=== PATIENT | female | born 1955 | race Caucasian/White ===

== ENCOUNTER 2016-08-02 07:29 | Emergency (ER) | payer OTHER ==
[~2016-08-02] VITALS: Ht 165.1 cm; Wt 71.7 kg
[~2016-08-02 07:29] MED LIST: PEPCID40 MG PO; PERCOCET 325 MG1 TA2 PO; ZOFRAN ODT4 MG SL
[2016-08-02 07:33] VITALS: BP 123/75
--- NOTE | 2016-08-02 07:48 | ED UPPER/LOWER EXTREMITY COMPL ---
History of Present Illness General Chief Complaint: Lower Extremity Injury Stated Complaint: RT LEG PAIN S/P FALL Source: patient Exam Limitations: no limitations Vital Signs & Intake/Output Vital Signs & Intake/Output Vital Signs Date Time Temp Pulse Resp B/P Pulse O2 O2 Flow FiO2 Ox Delivery Rate 08/02 0733 97.0 73 20 123/75 99 Room Air Allergies Coded Allergies: Sulfa (Sulfonamide Antibiotics) (UNKNOWN 08/02/16) erythromycin base (UNKNOWN 08/02/16) levofloxacin (UNKNOWN 08/02/16) Reconcile Medications Atenolol 25 MG TABLET 1 TAB PO DAILY HEART (Reported) Escitalopram Oxalate 10 MG TABLET 1 TAB PO DAILY MENTAL HEALTH (Reported) Ibuprofen 400 MG TABLET 1 TAB PO TID PRN PAIN Tylenol With Codeine (Tylenol With Codeine #3 Tablet) 300 MG-30 MG TABLET 1 TAB PO BIDP PRN BREAKTHROUGH PAIN Triage Note: TRIP AND FELL 2 DAYS AGO INJURING RIGHT SUAREZ. PT STATES PAIN WITH WEIGHT BEARING AND WHEN SHE SLEEPS Triage Nurses Notes Reviewed? yes Onset: Abrupt Duration: day(s): (3) Timing: recent history Severity: moderate Severity Numbers: 7 (4-7) Pain/Injury Location: Right: Leg. Method of Injury: fall Modifying Factors: Worsens With: other (WALKING, SLEEPING). Associated Symptoms: BRUISING HPI: 61 year old female who presents to the ER with right suarez pain after tripping on snow on thursday. Pain is 4/10 to 7/10. No relief with tylenol. Worse with walking and with sleep. Pain dull in intensity. Past History Travel History Traveled to [place] past 21 day No Medical History Any Pertinent Medical History? see below for history Cardiovascular: low bp Gastrointestinal: irritable bowel syndrome Surgical History Surgical History: non-contributory Psychosocial History What is your primary language Nepali Tobacco Use: Never used ETOH Use: occasional use Illicit Drug Use: denies illicit drug use Family History Hx Contributory? No Review of Systems Review of Systems Constitutional: Denies: chills, fever. EENTM: Reports: no symptoms. Respiratory: Denies: cough, short of breath. Cardiovascular: Denies: chest pain, palpitations. Gastrointestinal/Abdominal: Denies: abdominal pain. Genitourinary: Denies: discharge, dysuria. Musculoskeletal: Reports: no symptoms. Skin: Reports: no symptoms. Neurological/Psychological: Reports: no symptoms. Hematologic/Endocrine: Reports: bruising, bleeding. Denies: polyuria, polydipsia. Immunological: Denies: splenectomy. All Other Systems: Reviewed and Negative Physical Exam Physical Exam General Appearance: well developed/nourished, alert, awake, mild distress Head: atraumatic Eyes: Bilateral: PERRL, EOMI. Ears, Nose, Throat: normal pharynx, normal ENT inspection, hearing grossly normal Neck: normal inspection, supple Cardiovascular/Respiratory: regular rate/rhythm Peripheral Pulses: 2+ radial (R), 2+ radial (L) Back: normal inspection Leg Left: normal range of motion, normal inspection Leg Right: swelling, pain, soft tissue tenderness, ABRASION Hip Left: normal range of motion, normal inspection Hip Right: normal range of motion, normal inspection Knee Left: normal range of motion, normal inspection Knee Right: normal range of motion, normal inspection Neurologic/Tendon: normal sensation, normal motor functions, normal tendon functions Skin: intact, normal color, warm/dry Lymphatic: no anterior cervical keyana Diagram Legs Front/Back 1) ABRASION 2) ABRASION Progress Differential Diagnosis: ABRASION, FX, CONTUSION Plan of Care: Orders Procedure Date/time Status [id number], RIGHT 08/02 801 Active Diagnostic Imaging: Viewed by Me: Radiology Read. Discussed w/RAD: Radiology Read. Radiology Impression: PATIENT: VALENCIA BRIAN PRESENT AGE: 61 PATIENT ACCOUNT NO: [id number] : 56 LOCATION: [facility] ORDERING PHYSICIAN: BARBARA ANGULO MD SERVICE DATE: 08/02/16 EXAM TYPE: RAD - [id number], RIGHT EXAMINATION: XR TIBIA AND FIBULA, RIGHT CLINICAL INFORMATION: Status post fall 3 days ago with pain right tibia. COMPARISON: None TECHNIQUE: AP and lateral views of the right tibia and fibula were obtained. FINDINGS: Soft tissue swelling is noted along the anterior aspect of the proximal tibia. No fracture or other bony abnormality is seen. IMPRESSION: Normal right tibia and fibula. DICTATED BY: ANCELMO PARRA MD DATE/TIME DICTATED:08/02/16818 VARNISH MIXER:FAYE DATE/TIME TRANSCRIBED:818 CONFIDENTIAL, DO NOT COPY WITHOUT APPROPRIATE AUTHORIZATION. < Electronically signed in Other Vendor System> SIGNED BY: ANCELMO PARRA MD 08/02/16 0824 Departure Departure Time of Disposition: 823 Disposition: HOME OR SELF CARE Condition: Stable Clinical Impression Primary Impression: Abrasion Referrals: PATIENT HAS NO PRIMARY CARE DR Additional Instructions: Take the ibuprofen as directed. Take the Tylenol No. 3 for breakthrough pain. Please follow-up with her doctor in the office. Continue to ice, rest and elevate the extremity. Topical antibiotic ointment over the abrasions. Return if worse. Departure Forms: Customer Survey General Discharge Information Prescriptions: Current Visit Scripts Ibuprofen 1 TAB PO TID PRN PAIN #20 TAB Tylenol With Codeine (Tylenol With Codeine #3 Tablet) 1 TAB PO BIDP PRN BREAKTHROUGH PAIN #12 TAB
--- NOTE | 2016-08-02 08:24 | RADIOLOGY REPORT ---
EXAMINATION: XR TIBIA AND FIBULA, RIGHT CLINICAL INFORMATION: Status post fall 3 days ago with pain right tibia. COMPARISON: None TECHNIQUE: AP and lateral views of the right tibia and fibula were obtained. FINDINGS: Soft tissue swelling is noted along the anterior aspect of the proximal tibia. No fracture or other bony abnormality is seen. IMPRESSION: Normal right tibia and fibula.
[2016-08-02] MEDS ORDERED: TYLENOL WITH C1 EACH PO (08:26)
[2016-08-02] MEDS ORDERED: IBUPROFEN400 M1 PO (08:26)
[2016-08-02] MEDS ORDERED: ESCITALOPRAM OX10 MG PO (08:28)
[2016-08-02] MEDS ORDERED: ATENOLOL25 M1 PO (08:28)
== END 2016-08-02 08:32 ==
LOC: ERH 07:29
DX: S80.811A Abrasion, right lower leg, initial encounter (principal); W00.0XXA Fall on same level due to ice and snow, initial encounter
CPT/HCPCS: 73590-RT

== ENCOUNTER 2016-12-20 12:16 | Emergency (ER) | payer OTHER ==
[~2016-12-20] VITALS: Ht 165.1 cm; Wt 72.6 kg
[~2016-12-20 12:16] MED LIST changes: +ATENOLOL25 M1 PO; +ESCITALOPRAM OX10 MG PO; +IBUPROFEN400 M1 PO; +TYLENOL WITH C1 EACH PO
--- NOTE | 2016-12-20 13:27 | ED GI/GU/ABDOMINAL COMPLAINT ---
History of Present Illness General Chief Complaint: Abdominal Pain/Flank Pain Stated Complaint: RUQ ABD PAIN Source: patient Exam Limitations: no limitations Vital Signs & Intake/Output Vital Signs & Intake/Output Vital Signs Date Time Temp Pulse Resp B/P B/P Pulse O2 O2 Flow FiO2 Mean Ox Delivery Rate 12/20 1505 96.1 65 15 109/58 97 Room Air Room Air 12/20 1419 Room Air Room Air 12/20 1219 99.5 76 18 125/77 98 Room Air Allergies Coded Allergies: Sulfa (Sulfonamide Antibiotics) (UNKNOWN 08/02/16) erythromycin base (UNKNOWN 08/02/16) levofloxacin (UNKNOWN 08/02/16) Reconcile Medications Atenolol 25 MG TABLET 1 TAB PO DAILY HEART (Reported) Escitalopram Oxalate 10 MG TABLET 1 TAB PO DAILY MENTAL HEALTH (Reported) Ibuprofen 400 MG TABLET 1 TAB PO TID PRN PAIN Omeprazole 20 MG TABLET.DR 1 TAB PO BID PRN gastritis Tylenol With Codeine (Tylenol With Codeine #3 Tablet) 300 MG-30 MG TABLET 1 TAB PO BIDP PRN BREAKTHROUGH PAIN Triage Note: PT TO TRIAGE FROM WALKIN CLINIC FOR C/O RUQ ABD PAIN, NAUSEA, VOMITING xWEEK. LBM TODAY WNL. NO OTHER COMPLAINTS. VSS. Triage Nurses Notes Reviewed? yes LMP (ages 10-50): post menopausal ? n Is pt currently ? No Onset: Abrupt Duration: week(s):, changing over time, continues in ED, intermittent Timing: single episode today Quality/Severity: cramping, dullness, moderate Severity Numbers: 7 Location: epigastric, right upper quadrant Radiation: no radiation Activities at Onset: none Prior Abdominal Problems: similar symptoms Past Sexual History: Unobtainable at this time No Modifying Factors: none Modifying Factors: Worsens With: eating, palpation. HPI: 61-year-old female with no sig past medical history presents complaining of pain in her right upper quadrant area for the past year. She reports that she's been having the pain intermittently over the past year. The pain will worsen for a day or 2 before going away completely. The current episode started one week ago and has been intermittently worsening. He is located in the right upper quadrant and rt flank and does not radiate. Currently pain is minimal but will intermittently get worse to a 7 out of 10. Pain described as dull and cramping. Patient reports that pain is worse after eating and there is some associated nausea and heartburn symptoms. She has never had any surgery on her belly and has never seen a doctor for these current symptoms. She denies any chest pain, shortness of breath, fever, urinary symptoms, vomiting, diarrhea or sick contacts. (LANETTE CH PA-C) Past History Travel History Traveled to [place] past 21 day No Medical History Any Pertinent Medical History? see below for history Cardiovascular: low bp Gastrointestinal: irritable bowel syndrome Surgical History Surgical History: non-contributory Psychosocial History What is your primary language Malian Tobacco Use: Never used Family History Hx Contributory? No (LANETTE CH PA-C) Review of Systems Review of Systems Constitutional: Reports: no symptoms. EENTM: Reports: no symptoms. Respiratory: Reports: no symptoms. Cardiovascular: Reports: no symptoms. GI: Reports: see HPI, abdominal pain. Genitourinary: Reports: no symptoms. Musculoskeletal: Reports: no symptoms. Skin: Reports: no symptoms. Neurological/Psychological: Reports: no symptoms. Hematologic/Endocrine: Reports: no symptoms. Immunologic/Allergic: Reports: no symptoms. All Other Systems: Reviewed and Negative (LANETTE CH PA-C) Physical Exam Physical Exam General Appearance: well developed/nourished, no apparent distress, alert, awake , comfortable Gastrointestinal: normal bowel sounds, soft, no organomegaly, tenderness (RUQ, RT FLANK) Comments: General: Hemodynamically stable. Afebrile. Well-developed well-nourished person in no acute distress. Head: Atraumatic, normocephalic Eyes: EOMI bilaterally, PERRLA, conjunctiva are not injected, no discharge, no nystagmus, fundus grossly normal bilaterally Nose: Atraumatic, no rhinorrhea, mucosa is not erythematous, no epistaxis. Sinuses are non-tender Ears: TM pearly jamison color bilaterally, external canal is clear, no discharge, hearing is normal Mouth: Appropriate dentition, no gingival bleeding, moist mucus membranes, no oral lesions, tonsils not erythematous or enlarged and free of exudate. Uvula rises midline. Neck: Supple, full active ROM, no lymphadenopathy, no midline tenderness to palpation, no thyromegaly, no tracheal deviation. Back: Non-tender, full active ROM, no scoliosis, no CVA tenderness Cardiovascular: regular rate and rhythm, no murmurs, rubs, or gallops. No JVD Respiratory: Chest is nontender. Regular respiratory rate and effort. No accessory muscle use. Lungs clear to auscultation bilaterally. Extremities: No edema. No gross deformities. No joint swelling. No calf swelling or tenderness. Full active and passive ROM. Strength 5/5 in upper and lower extremities. Peripheral pulses 2+ bilaterally, Patellar DTR 2+ Neuro: No confusion. Motor and sensory function is intact. Appropriate gait. Cerebellar function intact. Skin: Warm and dry. Appropriate turgor. No lesions or bruising. No appreciable rash on exposed skin. Core Measures ACS in differential dx? No Severe Sepsis Present: No Septic Shock Present: No (LANETTE CH PA-C) Progress Differential Diagnosis: appendicitis, biliary colic, cholecystitis, gastritis, hepatitis, inflamm bowel dis, pancreatitis, peptic ulcer, PUD/GERD, UTI/pyelo Plan of Care: Orders Procedure Date/time Status URINALYSIS 12/20 1342 Complete C-REACTIVE PROTEIN 12/20 1342 Complete COMPREHENSIVE METABOLIC PANEL 12/20 1342 Complete CBC WITHOUT DIFFERENTIAL 12/20 1342 Complete AMYLASE 12/20 1342 Complete Laboratory Tests 12/20/16 1405: Anion Gap 10, Estimated GFR > 60, BUN/Creatinine Ratio 18.6, Glucose 79, Calcium 9.4, Total Bilirubin 0.7, AST 28, ALT 21, Alkaline Phosphatase 80, C-Reactive Prot, Quant < 0.5, Total Protein 7.2, Albumin 4.4, Globulin 2.8, Albumin/ Globulin Ratio 1.6, Amylase 65, CBC w Diff NO MAN DIFF REQ, RBC 4.54, MCV 88.1, MCH 28.9, RDW 12.8, MPV 9.9, Gran % 56.5, Lymphocytes % 28.3, Monocytes % 11.5 H, Eosinophils % 2.5, Basophils % 1.2, Absolute Granulocytes 3.0, Absolute Lymphocytes 1.5, Absolute Monocytes 0.6, Absolute Eosinophils 0.1, Absolute Basophils 0.1, PUBS MCHC 32.8 L, Urine Color STRAW, Urine Clarity CLEAR, Urine pH 7.0, Ur Specific Union <= 1.005, Urine Protein NEG, Urine Ketones NEG, Urine Nitrite NEG, Urine Bilirubin NEG, Urine Urobilinogen 0.2, Ur Leukocyte Esterase NEG, Ur Microscopic EXAM NOT REQUIRED, Urine Hemoglobin NEG, Urine Glucose NEG Patient have an ultrasound of her right upper quadrant urinalysis and basic blood work. She'll be given a liter normal saline IV Protonix and a GI cocktail. We will reevaluate patient after labs are back. All blood work is an within normal limits. Ultrasound of the right upper quadrant is negative for any gallstones or cholecystitis. Patient reports complete symptom resolution with IV Protonix and GI cocktail. Symptoms have been present for over a year and a reproducible. Symptoms resolved with above treatment. No chest pain or shortness of breath. No history of diabetes or other cardiac risk factors. Patient will be discharged home with omeprazole twice a day and was educated on dietary changes to treat gastritis or gastric reflux. Reviewed all results with patient and she is in agreement with the plan. She is afebrile and nontoxic at discharge. (JING GROSSMAN,LANETTE) Initial ED EKG: none Comments: PATIENT: VALENCIA BRIAN PRESENT AGE: 61 PATIENT ACCOUNT NO: [id number] : 56 LOCATION: [facility] ORDERING PHYSICIAN: LANETTE CH PA-C SERVICE DATE: 12/20/16 EXAM TYPE: US - US-LIMITED ABDOMEN EXAMINATION: US ABDOMEN LIMITED CLINICAL INFORMATION: Right upper quadrant, epigastric pain. Evaluate for cholecystitis, cholelithiasis. COMPARISON: No relevant prior studies are available for comparison. TECHNIQUE: Real-time imaging of the right upper quadrant abdominal viscera. FINDINGS: PANCREAS: The pancreatic head and body appear unremarkable. The tail is obscured by overlying bowel gas. LIVER: Normal. The liver demonstrates normal size, contour and echogenicity. No focal lesion or intrahepatic biliary duct dilatation. GALLBLADDER: Normal. The gallbladder is physiologically distended without evidence of stones, sludge, polyps, wall thickening or pericholecystic fluid. COMMON BILE DUCT: Normal in caliber measuring 0.2 cm in diameter. RIGHT KIDNEY: Normal. No hydronephrosis. No renal calculi or focal parenchymal lesions. The kidney measures 9.9 cm in maximum dimension. FREE FLUID: None. IMPRESSION: No cholelithiasis, gallbladder wall thickening, or pericholecystic free fluid to suggest acute cholecystitis. DICTATED BY: ALBERT GUSTAFSON MD DATE/TIME DICTATED:12/20/161411 LIQUOR COMMISSIONER:FAYE DATE/TIME TRANSCRIBED:12/20/161411 CONFIDENTIAL, DO NOT COPY WITHOUT APPROPRIATE AUTHORIZATION. <Electronically signed in Other Vendor System> SIGNED BY: ALBERT GUSTAFSON MD 0059 (LANETTE CH PA-C) Departure Departure Disposition: HOME OR SELF CARE Condition: Stable Clinical Impression Primary Impression: Gastritis Qualifiers: Gastritis type: unspecified gastritis Chronicity: acute Gastritis bleeding: without bleeding Qualified Code: K29.00 - Acute gastritis without bleeding Referrals: LIZ NAVARRETE,JOYCE Cook (PCP/Family) Additional Instructions: Rest and drink plenty of fluids. Avoid spicy foods, caffeine, alcohol, or chocolate. Use omeprazole twice a day as needed. Make a follow-up appt with your primary care doctor this week to review all results of today's visit and for further evaluation. Return to the emergency department with any concerns. Please go over all results of today's visit with your primary care doctor. Contact your primary care doctor to let them know you were here in the emergency room. There may be nonspecific findings which may not be related to your visit today here in the emergency room but may require further evaluation and chronic monitoring by your primary care doctor. If you had a laceration today the chance of foreign body always remains. You should follow-up with your primary care doctor for recheck in 3-5 days for a wound check. If you had an x-ray done there is a chance that a fracture could have been missed on initial read and you should follow-up with your primary care doctor for repeat x-rays if symptoms persist. If your blood pressure was elevated here in the emergency room please have rechecked by her primary care doctor within the next 48 hours by your primary care doctor. If you were prescribed a narcotic here in the emergency room or any type of controlled substances you're not allowed to drive while taking this medication or operate any type of heavy machinery. Narcotics can make you feel lightheaded dizziness nausea and can cause constipation. You may need to waste picker a stool softener. Thank you for choosing [facility] emergency room. Please return to the emergency room immediately if you have any other concerns worsening of symptoms. Departure Forms: Customer Survey General Discharge Information Prescriptions: Current Visit Scripts Omeprazole 1 TAB PO BID PRN gastritis #30 TAB (LANETTE HC PA-C) PA/ENGINEERING AGENT Co-Sign Statement Statement: ED Attending supervision documentation- [] I saw and evaluated the patient. I have also reviewed all the pertinent lab results and diagnostic results. I agree with the findings and the plan of care as documented in the PA's/ENGINEERING AGENT's documentation. [X] I have reviewed the ED Record and agree with the PA's/ENGINEERING AGENT's documentation. [] Additions or exceptions (if any) to the PAs/ENGINEERING AGENT's note and plan are summarized below: [] (KEV NAVARRETE,BARBARA)
[2016-12-20 14:17] LABS: ABSOLUTE BASOPHIL COUNT 0.1 /CUMM (0.0-0.2); ABSOLUTE EOSINOPHIL COUNT 0.1 /CUMM (0.0-0.7); ABSOLUTE LYMPH COUNT 1.5 /CUMM (1.2-3.4); ABSOLUTE MONOCYTE COUNT 0.6 /CUMM (0.10-0.60); BASOPHIL % 1.2 % (0.0-2.0); EOSINOPHIL % 2.5 % (0-5); GRANULOCYTE % 56.5 % (42.2-75.2); MEAN CORPUSCULAR HGB 28.9 PG (27.0-31.0); MEAN CORPUSCULAR HGB CONC 32.8 G/DL (33.0-37.0); MEAN CORPUSCULAR VOLUME 88.1 FL (81.0-99.0); MEAN PLATELET VOLUME 9.9 FL (7.4-10.4); PLATELET COUNT 178 /CUMM (130-400); RBC DISTRIBUTION WIDTH 12.8 % (11.5-14.5); RED BLOOD CELL CT 4.54 /CUMM (4.20-5.40); WHITE BLOOD CELL COUNT 5.3 /CUMM (4.8-10.8)
--- NOTE | 2016-12-20 14:30 | ULTRASOUND REPORT ---
EXAMINATION: US ABDOMEN LIMITED CLINICAL INFORMATION: Right upper quadrant, epigastric pain. Evaluate for cholecystitis, cholelithiasis. COMPARISON: No relevant prior studies are available for comparison. TECHNIQUE: Real-time imaging of the right upper quadrant abdominal viscera. FINDINGS: PANCREAS: The pancreatic head and body appear unremarkable. The tail is obscured by overlying bowel gas. LIVER: Normal. The liver demonstrates normal size, contour and echogenicity. No focal lesion or intrahepatic biliary duct dilatation. GALLBLADDER: Normal. The gallbladder is physiologically distended without evidence of stones, sludge, polyps, wall thickening or pericholecystic fluid. COMMON BILE DUCT: Normal in caliber measuring 0.2 cm in diameter. RIGHT KIDNEY: Normal. No hydronephrosis. No renal calculi or focal parenchymal lesions. The kidney measures 9.9 cm in maximum dimension. FREE FLUID: None. IMPRESSION: No cholelithiasis, gallbladder wall thickening, or pericholecystic free fluid to suggest acute cholecystitis.
[2016-12-20] MEDS ORDERED: OMEPRAZOLE20 M3 PO (14:52)
[2016-12-20 15:05] VITALS: BP 109/58
== END 2016-12-20 15:16 ==
LOC: ERH 12:16
PROVIDERS: Physician Assistant Medical
DX: K29.70 Gastritis, unspecified, without bleeding (principal)
CPT/HCPCS: 81003; 96361; 96374